=== PATIENT | male | born 1985 | race Caucasian/White ===

== ENCOUNTER 2020-02-20 11:40 | Inpatient (IN) ==
[2020-02-20] MEDS ORDERED: PHARMACY CONSULT - VANCOMYCIN XX SCH (13:00)
--- NOTE | 2020-02-20 13:16 | RAD ---
HISTORYBIL LOWER EXT CELLULITIS, HX OF CHF (PT 500+ #)STUDYPortable AP chestCOMPARISONNoneFINDINGSThere is moderately severe cardiomegaly. The lungs are grossly clear. There is minimal vascular congestion. There is no obvious bony abnormality. There is no obvious effusion.IMPRESSIONModerately severe cardiomegaly and mild vascular congestionElectronically signed by: LISA FLOWERS (February 20, 2020 13:14:55)
[2020-02-20 13:47] LABS: BASOPHILS % (AUTO) 0.6 % (0.2-1.0); EOSINOPHILS # (AUTO) 0.1 x10^3/uL (0.0-0.2); EOSINOPHILS % (AUTO) 1.9 % (0.9-2.9); HEMATOCRIT 42.5 % (42.0-54.0); HEMOGLOBIN 13.8 g/dL (13.5-18.0); LYMPHOCYTES # (AUTO) 0.8 X10^3/uL (1.3-2.9); LYMPHOCYTES % (AUTO) 11.5 % (21.0-51.0); MEAN CORPUSCULAR HEMOGLOBIN 29.5 pg (27.0-34.0); MEAN CORPUSCULAR HGB CONC 32.6 g/dL (33.0-35.0); MEAN CORPUSCULAR VOLUME 90.6 fL (80.0-100.0); MEAN PLATELET VOLUME 8.7 fL (7.4-11.0); MONOCYTES # (AUTO) 0.4 x10^3/uL (0.3-0.8); MONOCYTES % (AUTO) 6.5 % (0.0-13.0); NEUTROPHILS # (AUTO) 5.5 x10^3/uL (2.2-4.8); NEUTROPHILS % (AUTO) 79.5 % (42.0-75.0); PLATELET COUNT 179 X10^3/uL (150.0-450.0); RED BLOOD COUNT 4.69 X10^6/uL (4.7-6.0); RED CELL DISTRIBUTION WIDTH 17.6 % (11.6-16.5); WHITE BLOOD COUNT 6.9 X10^3/uL (3.6-10.0)
[2020-02-20 14:05] LABS: ALANINE AMINOTRANSFERASE 34 Units/L (12-78); ALBUMIN 3.8 g/dL (3.4-5.0); ALKALINE PHOSPHATASE 80 Units/L (46-116); ASPARTATE AMINO TRANSFERASE 18 Units/L (15-37); BLOOD UREA NITROGEN 20 mg/dL (7-18); CALCIUM 8.6 mg/dL (8.5-10.1); CARBON DIOXIDE 39.5 mmol/L (21-32); CHLORIDE 96 mmol/L (98-107); COR NA(FOR HYPERGLY) 141 mmol/L (136-145); CREATININE 1.56 mg/dL (0.70-1.30); SODIUM 139 mmol/L (136-145); TOTAL PROTEIN 7.5 g/dL (6.4-8.2); eGFR NON BLACK RACES 55 (>60)
[2020-02-20 14:36] VITALS: BMI 81.5
[2020-02-20] MEDS: VANCOMYCIN HCL 1 G in NS 250 ML IV 250 ML IV SCH ×2 (16:01→21:31)
[2020-02-20] MEDS: ZOSYN VIAL 3.375 GRAMS 3.375 G in NS 100 ML IV 100 ML IV SCH ×2 (16:02→21:31)
[2020-02-20] MEDS: LASIX IVP SCH (17:47)
[2020-02-21 05:42] LABS: BASOPHILS # (AUTO) 0.1 X10^3/uL (0.0-0.1); BASOPHILS % (AUTO) 0.9 % (0.2-1.0); EOSINOPHILS # (AUTO) 0.2 x10^3/uL (0.0-0.2); EOSINOPHILS % (AUTO) 2.8 % (0.9-2.9); HEMATOCRIT 43.4 % (42.0-54.0); HEMOGLOBIN 14.1 g/dL (13.5-18.0); LYMPHOCYTES # (AUTO) 0.8 X10^3/uL (1.3-2.9); LYMPHOCYTES % (AUTO) 12.6 % (21.0-51.0); MEAN CORPUSCULAR HEMOGLOBIN 29.8 pg (27.0-34.0); MEAN CORPUSCULAR HGB CONC 32.5 g/dL (33.0-35.0); MEAN CORPUSCULAR VOLUME 91.5 fL (80.0-100.0); MEAN PLATELET VOLUME 9.2 fL (7.4-11.0); MONOCYTES # (AUTO) 0.5 x10^3/uL (0.3-0.8); MONOCYTES % (AUTO) 8.1 % (0.0-13.0); NEUTROPHILS # (AUTO) 4.7 x10^3/uL (2.2-4.8); NEUTROPHILS % (AUTO) 75.6 % (42.0-75.0); PLATELET COUNT 169 X10^3/uL (150.0-450.0); RED BLOOD COUNT 4.75 X10^6/uL (4.7-6.0); WHITE BLOOD COUNT 6.2 X10^3/uL (3.6-10.0)
[2020-02-21 05:57] LABS: ALANINE AMINOTRANSFERASE 33 Units/L (12-78); ALBUMIN 3.8 g/dL (3.4-5.0); ALKALINE PHOSPHATASE 82 Units/L (46-116); ASPARTATE AMINO TRANSFERASE 23 Units/L (15-37); BLOOD UREA NITROGEN 18 mg/dL (7-18); CALCIUM 8.5 mg/dL (8.5-10.1); CHLORIDE 97 mmol/L (98-107); COR NA(FOR HYPERGLY) 142 mmol/L (136-145); CREATININE 1.33 mg/dL (0.70-1.30); SODIUM 141 mmol/L (136-145); TOTAL PROTEIN 7.9 g/dL (6.4-8.2); eGFR NON BLACK RACES > 60 (>60)
[2020-02-21 06:04] LABS: CARBON DIOXIDE 44.3 mmol/L (21-32)
[2020-02-21] MEDS: ZOSYN VIAL 3.375 GRAMS 3.375 G in NS 100 ML IV 100 ML IV SCH ×3 (06:18→21:30)
[2020-02-21] MEDS: VANCOMYCIN HCL 1 G in NS 250 ML IV 250 ML IV SCH (06:18)
[2020-02-21] MEDS: LASIX IVP SCH ×2 (09:50→17:29)
[2020-02-21] MEDS: COREG TAB 25 MG PO SCH ×2 (11:59→21:29)
[2020-02-21] MEDS ORDERED: PHARMACY COMMENT IV NR (13:30)
[2020-02-21 13:59] LABS: CREATININE 1.28 mg/dL (0.70-1.30); VANCOMYCIN,TROUGH 8.9 ug/mL (15-20)
[2020-02-21] MEDS ORDERED: D5W 250 ML IV 250 ML IV ONE (14:44)
[2020-02-21] MEDS ORDERED: VANCOMYCIN HCL ONE ×6 (14:44→20:13)
[2020-02-21] MEDS: VANCOMYCIN HCL VIAL 1.25 G 1.25 G in NS 250 ML IV 250 ML IV SCH ×2 (14:50→21:30)
[2020-02-21] MEDS ORDERED: NS 250 ML IV 250 ML IV ONE ×2 (20:11→20:12)
[2020-02-22] MEDS ORDERED: NS 250 ML IV 250 ML IV ONE (04:57)
[2020-02-22] MEDS ORDERED: VANCOMYCIN HCL ONE ×2 (04:57)
[2020-02-22] MEDS: VANCOMYCIN HCL VIAL 1.25 G 1.25 G in NS 250 ML IV 250 ML IV SCH ×3 (05:00→21:18)
[2020-02-22] MEDS ORDERED: NS 100 ML IV + SPIKE MINIBAG* 100 ML IV ONE ×2 (05:01→13:53)
[2020-02-22] MEDS: ZOSYN VIAL 3.375 GRAMS 3.375 G in NS 100 ML IV 100 ML IV SCH ×3 (05:05→21:18)
[2020-02-22] MEDS: VANCOMYCIN HCL 1 G in NS 250 ML IV 250 ML IV SCH (05:27)
[2020-02-22 06:00] LABS: BASOPHILS # (AUTO) 0.1 X10^3/uL (0.0-0.1); EOSINOPHILS # (AUTO) 0.2 x10^3/uL (0.0-0.2); EOSINOPHILS % (AUTO) 2.4 % (0.9-2.9); HEMATOCRIT 40.8 % (42.0-54.0); HEMOGLOBIN 13.4 g/dL (13.5-18.0); LYMPHOCYTES % (AUTO) 11.9 % (21.0-51.0); MEAN CORPUSCULAR HEMOGLOBIN 29.8 pg (27.0-34.0); MEAN CORPUSCULAR HGB CONC 32.8 g/dL (33.0-35.0); MONOCYTES # (AUTO) 0.8 x10^3/uL (0.3-0.8); MONOCYTES % (AUTO) 9.8 % (0.0-13.0); NEUTROPHILS % (AUTO) 74.9 % (42.0-75.0); PLATELET COUNT 190 X10^3/uL (150.0-450.0); RED BLOOD COUNT 4.48 X10^6/uL (4.7-6.0); RED CELL DISTRIBUTION WIDTH 17.4 % (11.6-16.5)
[2020-02-22] MEDS: TYLENOL 325 MG TAB PO PRN (06:09)
[2020-02-22 06:20] LABS: ALANINE AMINOTRANSFERASE 28 Units/L (12-78); ALBUMIN 3.5 g/dL (3.4-5.0); ALKALINE PHOSPHATASE 71 Units/L (46-116); ASPARTATE AMINO TRANSFERASE 19 Units/L (15-37); CALCIUM 8.4 mg/dL (8.5-10.1); CHLORIDE 96 mmol/L (98-107); COR NA(FOR HYPERGLY) 139 mmol/L (136-145); CREATININE 1.13 mg/dL (0.70-1.30); SODIUM 138 mmol/L (136-145); TOTAL PROTEIN 7.1 g/dL (6.4-8.2); eGFR NON BLACK RACES > 60 (>60)
[2020-02-22 06:50] LABS: BLOOD UREA NITROGEN 15 mg/dL (7-18); CARBON DIOXIDE 42.2 mmol/L (21-32)
[2020-02-22] MEDS: COREG TAB 25 MG PO SCH ×2 (09:39→21:14)
[2020-02-22] MEDS: LASIX IVP SCH ×2 (09:39→17:22)
[2020-02-22] MEDS ORDERED: PHARMACY COMMENT IV NR (13:30)
[2020-02-22 13:57] LABS: CREATININE 1.28 mg/dL (0.70-1.30); VANCOMYCIN,TROUGH 17.2 ug/mL (15-20)
--- NOTE | 2020-02-22 15:46 | RAD ---
HISTORYSOB, BEST IMAGES POSSIBLESTUDJAIR STEVENS/LAT ADULTCOMPARISONMay 2019FINDINGSThe trachea is midline. The cardiac silhouette is enlarged with pulmonary vascular congestion interstitial prominence. Correlate clinically.IMPRESSIONCardiomegaly with pulmonary vascular congestion and interstitial prominence.Electronically signed by: CHRISTOPHE GIL (February 22, 2020 15:45:19)
[2020-02-22 15:56] LABS: ABG BASE EXCESS 13.1 mmol/L (-2.0-2.0)
[2020-02-22 15:57] LABS: ABG HCO3 39.1 mmol/L (22-26)
[2020-02-22 15:58] LABS: ABG ALLEN TEST POS
[2020-02-22 17:33] LABS: ABG BASE EXCESS 15.4 mmol/L (-2.0-2.0)
[2020-02-22 17:34] LABS: ABG ALLEN TEST POS; ABG HCO3 43.4 mmol/L (22-26)
[2020-02-23 06:09] LABS: BASOPHILS % (AUTO) 0.4 % (0.2-1.0); EOSINOPHILS # (AUTO) 0.2 x10^3/uL (0.0-0.2); EOSINOPHILS % (AUTO) 2.5 % (0.9-2.9); HEMATOCRIT 40.8 % (42.0-54.0); HEMOGLOBIN 13.3 g/dL (13.5-18.0); LYMPHOCYTES # (AUTO) 0.9 X10^3/uL (1.3-2.9); LYMPHOCYTES % (AUTO) 11.5 % (21.0-51.0); MEAN CORPUSCULAR HEMOGLOBIN 29.6 pg (27.0-34.0); MEAN CORPUSCULAR HGB CONC 32.5 g/dL (33.0-35.0); MEAN CORPUSCULAR VOLUME 90.9 fL (80.0-100.0); MEAN PLATELET VOLUME 8.7 fL (7.4-11.0); MONOCYTES # (AUTO) 0.7 x10^3/uL (0.3-0.8); MONOCYTES % (AUTO) 9.3 % (0.0-13.0); NEUTROPHILS # (AUTO) 5.7 x10^3/uL (2.2-4.8); NEUTROPHILS % (AUTO) 76.3 % (42.0-75.0); PLATELET COUNT 179 X10^3/uL (150.0-450.0); RED BLOOD COUNT 4.49 X10^6/uL (4.7-6.0); RED CELL DISTRIBUTION WIDTH 17.8 % (11.6-16.5); WHITE BLOOD COUNT 7.5 X10^3/uL (3.6-10.0)
[2020-02-23] MEDS: VANCOMYCIN HCL VIAL 1.25 G 1.25 G in NS 250 ML IV 250 ML IV SCH ×3 (06:13→22:33)
[2020-02-23 06:25] LABS: ALANINE AMINOTRANSFERASE 24 Units/L (12-78); ALBUMIN 3.3 g/dL (3.4-5.0); ALKALINE PHOSPHATASE 64 Units/L (46-116); ASPARTATE AMINO TRANSFERASE 20 Units/L (15-37); BLOOD UREA NITROGEN 12 mg/dL (7-18); CALCIUM 8.5 mg/dL (8.5-10.1); CHLORIDE 97 mmol/L (98-107); COR CA(FOR HYPOALB) 9.1 mg/dL (8.5-10.1); COR NA(FOR HYPERGLY) 140 mmol/L (136-145); CREATININE 1.11 mg/dL (0.70-1.30); SODIUM 139 mmol/L (136-145); TOTAL PROTEIN 6.9 g/dL (6.4-8.2); eGFR NON BLACK RACES > 60 (>60)
[2020-02-23 06:27] LABS: CARBON DIOXIDE 42.3 mmol/L (21-32)
[2020-02-23] MEDS: LASIX IVP SCH ×2 (08:35→17:30)
[2020-02-23] MEDS: COREG TAB 25 MG PO SCH ×2 (08:35→21:30)
[2020-02-23] MEDS: ZOSYN VIAL 3.375 GRAMS 3.375 G in NS 100 ML IV 100 ML IV SCH ×4 (08:35→21:40)
[2020-02-23] MEDS: DUONEB 0.5 MG/3 MG (3 mL) NEB SCH ×4 (10:00→20:34)
--- NOTE | 2020-02-23 10:03 | DR.UPDATE ---
H&P Update History and Physical Update: History and Physical reviewed and patient examined. Changes noted: Yes with the following: WAS SEEN IN THE OFFICE DUE TO COMPLAINTS OF BILATERAL LOWER EXTREMITY SWELLING AND REDNESS. A VENOUS DOPPLER WAS OBTAINED AND HE WAS STARTED ON BACTRIM DS 1 TABLET PO BID THREE DAYS PRIOR TO TODAYS VISIT. HIS LASIX WAS ALSO INCREASED TO 80MG PO BID THREE DAYS PRIOR. SYMPTOMS CONTINUE TO WORSEN. HE CONTINUES WITH 3+ PITTING EDEMA AND LOWER EXTREMITY ERYTHEMA AND EDEMA. HE WAS ADMITTED TO THE HOSPITAL FOR FURTHER EVALUATION AND TREATMENT OF LOWER EXTREMITY CELLULITIS. ON ADMISSION, VITALS WERE 98.9-64-20-94%-125/59. LABS WERE OBTAINED. ABNORMAL LAB VALUES INCLUDE THE FOLLOWING: RBC 4.69, CHLORIDE 96, CARBON DIOXIDE 39.5, BUN 20, CREATININE 1.56, GLUCOSE 193, BNP 246. BLOOD CULTURES WERE SET UP. HE WAS STARTED ON VANCOMYCIN 1.25G IV TID, ZOSYN 3.375G IV TID, AND LASIX 40MG IV BID. OTHERWISE, WE WILL FOLLOW UP WITH AM LABS AND CONTINUE TO MONITOR. Prescription drug monitoring program results: PDMP reviewed and no concerns identified H&P Reviewed: Yes Patient was examined?: Yes
[2020-02-23 10:45] LABS: ABG BASE EXCESS 17.1 mmol/L (-2.0-2.0)
[2020-02-23 10:46] LABS: ABG HCO3 46.2 mmol/L (22-26)
[2020-02-23 10:47] LABS: ABG ALLEN TEST POS
--- NOTE | 2020-02-23 11:51 | RAD ---
HISTORYSOBSTUDYUpright portable AP chestCOMPARISONMay 2019FINDINGSThere is unchanged moderate cardiomegaly. There is moderate vascular congestion. There is no obvious pleural effusion. There is no focal lung consolidation.IMPRESSIONUnchanged cardiomegaly and vascular congestionElectronically signed by: LISA FLOWERS (Feb 23, 2020 11:50:04)
--- NOTE | 2020-02-23 21:07 | PCM.PROG ---
Progress Note - Progress Note for Day of Date of Exam: 02/23/20 - Subjective Subjective: IS BEING TREATED FOR BILATERAL LOWER EXTREMITY CELLULITIS AND CONGESTIVE HEART FAILURE. TODAY, HE IS LYING IN BED WITH EYES CLOSED ON MORNING ROUNDS. HE AWAKENS EASILY TO VERBAL STIMULI. HE REPORTS SHORTNESS OF BREATH THIS MORNING. HE CONTINUES WITH LOWER EXTREMITY ERYTHEM AND 2+ PITTING EDEMA. HIS VITALS THIS MORNING ARE: 97.9-70-22-91%NC-101/47. LABS WERE OBTAINED. ABNORMAL LAB VALUES INCLUDE THE FOLLOWING: RBC 4.49, HGB 13.3, HCT 40.8, CHLORIDE 97, CARBON DIOXIDE 42.3, GLUCOSE 131, ALBUMIN 3.3. AN ABG WAS REPEATED THIS MORNING AND REVEALED: PH 7.370, PC02 80.0, P02 40.0, HC03 46.2, 02 SATURATION 73.0, BASE EXCESS 17.1. BLOOD CULTURES ARE PENDING. A CHEST XRAY WAS OBTAINED AND REVEALED: no changed cardiomegaly and vascular congestion. HE IS CURRENTLY RECEIVING VANCOMYCIN 1.25G IV TID, ZOSYN 3.375G IV Q6H, COREG 25MG PO BID, AND LASIX 40MG IV BID. TODAY, WE WILL INCREASE LASIX TO 80MG IV BID AND START DUONEBS QID. OTHERWISE, WE PLAN TO FOLLOW UP WITH AM LABS AND CONTINUE TO MONITOR. - Past Medical Family Social History Past Med/Fam/Surg Hx: No changes since H&P Allergies: Allergies No Known Drug Allergies Allergy (Verified 02/20/20 14:34) - Review of Systems ROS: No change since H&P - Vital Signs and I&O's Vital Signs: Temperature 98.3 F Pulse Rate [Left Brachial] 80 Pulse Rate 68 Respiratory Rate 20 Blood Pressure [Left Arm] 132/81 O2 Sat by Pulse Oximetry 99 Intake and Output: Intake & Output 02/21/20 02/22/20 02/23/20 02/24/20 11:59 11:59 11:59 11:59 Intake Total 1991 363 / 0 4651 / 4651 720 / 720 Balance 1991 4651 / 4651 720 / 720 - Physical Exam Oriented: Normal Eyes: Normal Ear: Normal Nose: Normal Throat: Normal Respiratory: Generalized, Diminished, Wheezes Cardiovascular: Edema (BLE 2+ PITTING EDEMA ) : Normal Auscultation: Bowel Sounds: Normal Palpation: Normal Tenderness: Normal Skin: Red (BILATERAL LOWER EXTREMITIES ), Tender, Hot Musculoskeletal: Normal Psychiatric: Normal Mood Description: Calm Affect: Normal Speech Pattern: Clear, Appropriate - Laboratory and Diagnostics Result Diagrams: 02/23/20 04:37 02/23/20 04:37 Labs: 02/20/20 13:32 Blood Blood Culture - Preliminary 02/20/20 13:24 Blood Blood Culture - Preliminary Laboratory WBC 7.5 X10^3/uL (3.6-10.0) 02/23/20 04:37 RBC 4.49 X10^6/uL (4.7-6.0) L 02/23/20 04:37 Hgb 13.3 g/dL (13.5-18.0) L 02/23/20 04:37 Hct 40.8 % (42.0-54.0) L 02/23/20 04:37 MCV 90.9 fL (80.0-100.0) 02/23/20 04:37 MCH 29.6 pg (27.0-34.0) 02/23/20 04:37 MCHC 32.5 g/dL (33.0-35.0) L 02/23/20 04:37 RDW 17.8 % (11.6-16.5) H 02/23/20 04:37 Plt Count 179 X10^3/uL (150.0-450.0) 02/23/20 04:37 MPV 8.7 fL (7.4-11.0) 02/23/20 04:37 Neut % (Auto) 76.3 % (42.0-75.0) H 02/23/20 04:37 Lymph % (Auto) 11.5 % (21.0-51.0) L 02/23/20 04:37 [place] % (Auto) 9.3 % (0.0-13.0) 02/23/20 04:37 Eos % (Auto) 2.5 % (0.9-2.9) 02/23/20 04:37 Baso % (Auto) 0.4 % (0.2-1.0) 02/23/20 04:37 Neut # (Auto) 5.7 x10^3/uL (2.2-4.8) H 02/23/20 04:37 Lymph # (Auto) 0.9 X10^3/uL (1.3-2.9) L 02/23/20 04:37 [place] # (Auto) 0.7 x10^3/uL (0.3-0.8) 02/23/20 04:37 Eos # (Auto) 0.2 x10^3/uL (0.0-0.2) 02/23/20 04:37 Baso # (Auto) 0.0 X10^3/uL (0.0-0.1) 02/23/20 04:37 Absolute Nucleated RBC 0.2 /100WBC 02/23/20 04:37 Sample Site Lr 02/23/20 10:39 ABG pH 7.370 (7.35-7.45) 02/23/20 10:39 ABG pCO2 80.0 mmHg (35.0-45.0) H* 02/23/20 10:39 ABG pO2 40.0 mmHg (80.0-100.0) L* 02/23/20 10:39 ABG HCO3 46.2 mmol/L (22-26) H* 02/23/20 10:39 ABG O2 Saturation 73.0 % (90-100) L* 02/23/20 10:39 ABG Base Excess 17.1 mmol/L (-2.0-2.0) H 02/23/20 10:39 Sergo Test Pos 02/23/20 10:39 A-a Gradient 10.0 mmHg 02/23/20 10:39 FiO2 21.0 02/23/20 10:39 Blood Gas Comments Avis well cb 02/23/20 10:39 Sodium 139 mmol/L (136-145) 02/23/20 04:37 Corrected Sodium 140 mmol/L (136-145) 02/23/20 04:37 Potassium 3.7 mmol/L (3.5-5.1) 02/23/20 04:37 Chloride 97 mmol/L (98-107) L 02/23/20 04:37 Carbon Dioxide 42.3 mmol/L (21-32) H* 02/23/20 04:37 BUN 12 mg/dL (7-18) 02/23/20 04:37 Creatinine 1.11 mg/dL (0.70-1.30) 02/23/20 04:37 Est GFR (MDRD) Af Amer > 60 (>60) 02/23/20 04:37 Est GFR (MDRD) Non-Af > 60 (>60) 02/23/20 04:37 Glucose 131 mg/dL (65-99) H 02/23/20 04:37 Hemoglobin A1c 6.3 % 02/20/20 13:24 Calcium 8.5 mg/dL (8.5-10.1) 02/23/20 04:37 Corrected Calcium 9.1 mg/dL (8.5-10.1) 02/23/20 04:37 Total Bilirubin 0.60 mg/dL (0.2-1.0) 02/23/20 04:37 AST 20 Units/L (15-37) 02/23/20 04:37 ALT 24 Units/L (12-78) 02/23/20 04:37 Alkaline Phosphatase 64 Units/L (46-116) 02/23/20 04:37 B-Natriuretic Peptide 246 pg/mL (0-79) H 02/20/20 13:24 Total Protein 6.9 g/dL (6.4-8.2) 02/23/20 04:37 Albumin 3.3 g/dL (3.4-5.0) L 02/23/20 04:37 Globulin 3.6 g/dL (2.5-4.5) 02/23/20 04:37 Albumin/Globulin Ratio 0.9 Ratio (1.1-2.1) L 02/23/20 04:37 Vancomycin Trough 17.2 ug/mL (15-20) 02/22/20 13:35 - Plan (1) Bilateral lower leg cellulitis Status: Acute Plan: VANCOMYCIN 1.25G IV TID, ZOSYN 3.375G IV Q6H, COREG 25MG PO BID, AND LASIX 80MG IV BID (2) Congestive heart failure Status: Acute Qualifiers: Heart failure type: unspecified Heart failure chronicity: acute on chronic Qualified Code(s): I50.9 - Heart failure, unspecified Plan: COREG 25MG PO BID, LASIX 80MG IV BID, CONTINUE TO MONITOR
[2020-02-23 21:27] LABS: CREATININE 1.28 mg/dL (0.70-1.30); VANCOMYCIN,TROUGH 18.2 ug/mL (15-20)
[2020-02-24] MEDS: ZOSYN VIAL 3.375 GRAMS 3.375 G in NS 100 ML IV 100 ML IV SCH ×4 (03:40→21:04)
[2020-02-24] MEDS: VANCOMYCIN HCL VIAL 1.25 G 1.25 G in NS 250 ML IV 250 ML IV SCH ×3 (06:14→21:59)
[2020-02-24 06:21] LABS: BASOPHILS # (AUTO) 0.1 X10^3/uL (0.0-0.1); BASOPHILS % (AUTO) 0.8 % (0.2-1.0); EOSINOPHILS # (AUTO) 0.2 x10^3/uL (0.0-0.2); EOSINOPHILS % (AUTO) 3.7 % (0.9-2.9); HEMATOCRIT 39.6 % (42.0-54.0); HEMOGLOBIN 13.1 g/dL (13.5-18.0); LYMPHOCYTES # (AUTO) 0.7 X10^3/uL (1.3-2.9); LYMPHOCYTES % (AUTO) 10.6 % (21.0-51.0); MEAN CORPUSCULAR HEMOGLOBIN 29.8 pg (27.0-34.0); MEAN CORPUSCULAR VOLUME 90.3 fL (80.0-100.0); MEAN PLATELET VOLUME 8.4 fL (7.4-11.0); MONOCYTES # (AUTO) 0.6 x10^3/uL (0.3-0.8); MONOCYTES % (AUTO) 9.1 % (0.0-13.0); NEUTROPHILS # (AUTO) 5.1 x10^3/uL (2.2-4.8); NEUTROPHILS % (AUTO) 75.8 % (42.0-75.0); PLATELET COUNT 149 X10^3/uL (150.0-450.0); RED BLOOD COUNT 4.39 X10^6/uL (4.7-6.0); RED CELL DISTRIBUTION WIDTH 17.5 % (11.6-16.5); WHITE BLOOD COUNT 6.8 X10^3/uL (3.6-10.0)
[2020-02-24 06:27] LABS: ABG BASE EXCESS 20.5 mmol/L (-2.0-2.0)
[2020-02-24 06:28] LABS: ABG ALLEN TEST POS; ABG HCO3 51.9 mmol/L (22-26)
[2020-02-24 06:29] LABS: ALANINE AMINOTRANSFERASE 22 Units/L (12-78); ALBUMIN 3.3 g/dL (3.4-5.0); ALKALINE PHOSPHATASE 67 Units/L (46-116); ASPARTATE AMINO TRANSFERASE 18 Units/L (15-37); BLOOD UREA NITROGEN 11 mg/dL (7-18); CALCIUM 8.5 mg/dL (8.5-10.1); CHLORIDE 97 mmol/L (98-107); COR CA(FOR HYPOALB) 9.1 mg/dL (8.5-10.1); COR NA(FOR HYPERGLY) 140 mmol/L (136-145); CREATININE 1.19 mg/dL (0.70-1.30); SODIUM 139 mmol/L (136-145); TOTAL PROTEIN 6.8 g/dL (6.4-8.2); eGFR NON BLACK RACES > 60 (>60)
[2020-02-24 06:49] LABS: CARBON DIOXIDE 41.9 mmol/L (21-32)
[2020-02-24] MEDS: LASIX IVP SCH ×2 (09:02→17:33)
[2020-02-24] MEDS: COREG TAB 25 MG PO SCH ×2 (09:08→21:09)
[2020-02-24] MEDS: DUONEB 0.5 MG/3 MG (3 mL) NEB SCH ×4 (09:12→20:25)
[2020-02-24] MEDS ORDERED: KLONOPIN TAB 0.5 MG PO PRN (09:49)
[2020-02-24 10:25] LABS: ABG ALLEN TEST POS; ABG BASE EXCESS 21.6 mmol/L (-2.0-2.0); ABG HCO3 50.7 mmol/L (22-26)
--- NOTE | 2020-02-24 10:38 | PCM.PROG ---
Progress Note - Progress Note for Day of Date of Exam: 02/24/20 - Subjective Subjective: IS BEING TREATED FOR BILATERAL LOWER EXTREMITY CELLULITIS AND CONGESTIVE HEART FAILURE. IS SEVERELY OBESE. TODAY, HE IS ALERT AND ORIENTED, SITTING IN BED ON MORNING ROUNDS. HE CONTINUES TO REPORT SHORTNESS OF BREATH AND WEAKNESS THIS MORNING. HE CONTINUES WITH LOWER EXTREMITY ERYTHEM AND 2+ PITTING EDEMA. HIS VITALS THIS MORNING ARE: 98.7-71-18-84%NC-125/58. LABS WERE OBTAINED. ABNORMAL LAB VALUES INCLUDE THE FOLLOWING: RBC 4.39, HGB 13.1, HCT 39.6, PLT COUNT 149, POTASSIUM 3.4, CHLORIDE 97. CARBON DIOXIDE 41.9, GLUCOSE 142, ALBUMIN 3.3. AN ABG WAS REPEATED THIS MO RNING AND REVEALED: PH 7.410, PC02 80.0, P02 91.0, HC03 50.7, 02 SATURATION 97.0, BASE EXCESS 21.6. BLOOD CULTURES ARE PENDING. HE IS CURRENTLY RECEIVING VANCOMYCIN 1.25G IV TID, ZOSYN 3.375G IV Q6H, COREG 25MG PO BID, AND LASIX 80MG IV BID. TODAY, WE WILL ADD SOLU-MEDROL 80MG IV TID AND SLIDING SCALE INSULIN. WE HAVE ENCOURAGED PATIENT TO WEAR THE BIPAP, BUT HE CONTINUES TO REFUSE. WE WILL CONTINUE TO EDUCATE ON THE IMPORTANCE OF WEARING THE BIPAP. OTHERWISE, WE WILL FOLLOW UP WITH AM LABS AND CONTINUE TO MONITOR. - Past Medical Family Social History Past Med/Fam/Surg Hx: No changes since H&P Allergies: Allergies No Known Drug Allergies Allergy (Verified 02/20/20 14:34) - Review of Systems ROS: No change since H&P - Vital Signs and I&O's Vital Signs: Temperature 98.7 F Pulse Rate [Left Brachial] 71 Pulse Rate 63 Respiratory Rate 24 Blood Pressure [Left Arm] 125/58 O2 Sat by Pulse Oximetry 96 Intake and Output: Intake & Output 02/21/20 02/22/20 02/23/20 02/24/20 11:59 11:59 11:59 11:59 Intake Total 1991 3630 / 3630 4651 / 4651 1400 / 1400 Balance 1991 3630 / 3630 4651 / 4651 1400 / 1400 - Physical Exam Oriented: Normal Eyes: Normal Ear: Normal Nose: Normal Throat: Normal Respiratory: Generalized, Diminished, Wheezes Cardiovascular: Edema (BLE 2+ PITTING EDEMA ) : Normal Auscultation: Bowel Sounds: Normal Palpation: Normal Tenderness: Normal Skin: Red (BILATERAL LOWER EXTREMITIES ), Tender, Hot Musculoskeletal: Normal Psychiatric: Normal Mood Description: Calm Affect: Normal Speech Pattern: Clear, Appropriate - Laboratory and Diagnostics Result Diagrams: 02/24/20 05:55 02/24/20 05:55 Labs: 02/20/20 13:32 Blood Blood Culture - Preliminary 02/20/20 13:24 Blood Blood Culture - Preliminary Laboratory WBC 6.8 X10^3/uL (3.6-10.0) 02/24/20 05:55 RBC 4.39 X10^6/uL (4.7-6.0) L 02/24/20 05:55 Hgb 13.1 g/dL (13.5-18.0) L 02/24/20 05:55 Hct 39.6 % (42.0-54.0) L 02/24/20 05:55 MCV 90.3 fL (80.0-100.0) 02/24/20 05:55 MCH 29.8 pg (27.0-34.0) 02/24/20 05:55 MCHC 33.0 g/dL (33.0-35.0) 02/24/20 05:55 RDW 17.5 % (11.6-16.5) H 02/24/20 05:55 Plt Count 149 X10^3/uL (150.0-450.0) L 02/24/20 05:55 MPV 8.4 fL (7.4-11.0) 02/24/20 05:55 Neut % (Auto) 75.8 % (42.0-75.0) H 02/24/20 05:55 Lymph % (Auto) 10.6 % (21.0-51.0) L 02/24/20 05:55 [place] % (Auto) 9.1 % (0.0-13.0) 02/24/20 05:55 Eos % (Auto) 3.7 % (0.9-2.9) H 02/24/20 05:55 Baso % (Auto) 0.8 % (0.2-1.0) 02/24/20 05:55 Neut # (Auto) 5.1 x10^3/uL (2.2-4.8) H 02/24/20 05:55 Lymph # (Auto) 0.7 X10^3/uL (1.3-2.9) L 02/24/20 05:55 [place] # (Auto) 0.6 x10^3/uL (0.3-0.8) 02/24/20 05:55 Eos # (Auto) 0.2 x10^3/uL (0.0-0.2) 02/24/20 05:55 Baso # (Auto) 0.1 X10^3/uL (0.0-0.1) 02/24/20 05:55 Absolute Nucleated RBC 0.0 /100WBC 02/24/20 05:55 Sample Site Rrad 02/24/20 10:15 ABG pH 7.410 (7.35-7.45) 02/24/20 10:15 ABG pCO2 80.0 mmHg (35.0-45.0) H* 02/24/20 10:15 ABG pO2 91.0 mmHg (80.0-100.0) 02/24/20 10:15 ABG HCO3 50.7 mmol/L (22-26) H* 02/24/20 10:15 ABG O2 Saturation 97.0 % (90-100) 02/24/20 10:15 ABG Base Excess 21.6 mmol/L (-2.0-2.0) H 02/24/20 10:15 Sergo Test Pos 02/24/20 10:15 A-a Gradient 23.0 mmHg 02/24/20 10:15 FiO2 30.0 02/24/20 10:15 Blood Gas Comments Pt daria well elj 02/24/20 10:15 Sodium 139 mmol/L (136-145) 02/24/20 05:55 Corrected Sodium 140 mmol/L (136-145) 02/24/20 05:55 Potassium 3.4 mmol/L (3.5-5.1) L 02/24/20 05:55 Chloride 97 mmol/L (98-107) L 02/24/20 05:55 Carbon Dioxide 41.9 mmol/L (21-32) H* 02/24/20 05:55 BUN 11 mg/dL (7-18) 02/24/20 05:55 Creatinine 1.19 mg/dL (0.70-1.30) 02/24/20 05:55 Est GFR (MDRD) Af Amer > 60 (>60) 02/24/20 05:55 Est GFR (MDRD) Non-Af > 60 (>60) 02/24/20 05:55 Glucose 142 mg/dL (65-99) H 02/24/20 05:55 Hemoglobin A1c 6.3 % 02/20/20 13:24 Calcium 8.5 mg/dL (8.5-10.1) 02/24/20 05:55 Corrected Calcium 9.1 mg/dL (8.5-10.1) 02/24/20 05:55 Total Bilirubin 0.60 mg/dL (0.2-1.0) 02/24/20 05:55 AST 18 Units/L (15-37) 02/24/20 05:55 ALT 22 Units/L (12-78) 02/24/20 05:55 Alkaline Phosphatase 67 Units/L (46-116) 02/24/20 05:55 B-Natriuretic Peptide 246 pg/mL (0-79) H 02/20/20 13:24 Total Protein 6.8 g/dL (6.4-8.2) 02/24/20 05:55 Albumin 3.3 g/dL (3.4-5.0) L 02/24/20 05:55 Globulin 3.5 g/dL (2.5-4.5) 02/24/20 05:55 Albumin/Globulin Ratio 0.9 Ratio (1.1-2.1) L 02/24/20 05:55 Vancomycin Trough 18.2 ug/mL (15-20) 02/23/20 20:30 - Plan (1) Bilateral lower leg cellulitis Status: Acute Plan: VANCOMYCIN 1.25G IV TID, ZOSYN 3.375G IV Q6H, COREG 25MG PO BID, AND LASIX 80MG IV BID (2) Congestive heart failure Status: Acute Qualifiers: Heart failure type: unspecified Heart failure chronicity: acute on chronic Qualified Code(s): I50.9 - Heart failure, unspecified Plan: COREG 25MG PO BID, LASIX 80MG IV BID, CONTINUE TO MONITOR (3) Respiratory failure with hypoxia and hypercapnia Status: Acute Qualifiers: Chronicity: acute on chronic Qualified Code(s): J96.21 - Acute and chronic respiratory failure with hypoxia; J96.22 - Acute and chronic respiratory failure with hypercapnia Plan: ENCOURAGE USE OF BIPAP, SOLU-MEDROL 80MG IV Q8H, CONTINUE TO MONITOR
[2020-02-24] MEDS: SOLU-Medrol 40 MG VIAL IVP SCH ×3 (11:21→21:04)
[2020-02-24] MEDS: SNACK - Diabetic Appropriate PO SCH (21:59)
[2020-02-24] MEDS: HumuLIN R SUBCUT PRN (22:18)
[2020-02-25] MEDS ORDERED: NS 250 ML IV 250 ML IV ONE ×2 (03:56→23:32)
[2020-02-25] MEDS: ZOSYN VIAL 3.375 GRAMS 3.375 G in NS 100 ML IV 100 ML IV SCH ×4 (04:00→21:40)
--- NOTE | 2020-02-25 04:44 | RAD ---
HISTORYshortness of breathSTUDYCHEST, 1 [id number]/2020FINDINGSThe trachea is midline. The cardiac silhouette is enlarged. Moderate pulmonary vascular congestion. No focal consolidation or pleural effusion. The bony thorax is unremarkable.IMPRESSIONCardiomegaly with moderate pulmonary vascular congestionNo significant change from previous 02/23/2020Electronically signed by: Stephan Amezquita (Feb 25, 2020 04:42:44)
[2020-02-25 05:05] LABS: BASOPHILS % (AUTO) 0.2 % (0.2-1.0); HEMATOCRIT 41.9 % (42.0-54.0); HEMOGLOBIN 13.7 g/dL (13.5-18.0); LYMPHOCYTES # (AUTO) 0.3 X10^3/uL (1.3-2.9); LYMPHOCYTES % (AUTO) 6.1 % (21.0-51.0); MEAN CORPUSCULAR HEMOGLOBIN 29.5 pg (27.0-34.0); MEAN CORPUSCULAR HGB CONC 32.6 g/dL (33.0-35.0); MEAN CORPUSCULAR VOLUME 90.6 fL (80.0-100.0); MEAN PLATELET VOLUME 8.6 fL (7.4-11.0); MONOCYTES # (AUTO) 0.2 x10^3/uL (0.3-0.8); MONOCYTES % (AUTO) 3.3 % (0.0-13.0); NEUTROPHILS # (AUTO) 4.8 x10^3/uL (2.2-4.8); NEUTROPHILS % (AUTO) 90.4 % (42.0-75.0); PLATELET COUNT 161 X10^3/uL (150.0-450.0); RED BLOOD COUNT 4.63 X10^6/uL (4.7-6.0); WHITE BLOOD COUNT 5.4 X10^3/uL (3.6-10.0)
[2020-02-25 05:14] LABS: ALANINE AMINOTRANSFERASE 23 Units/L (12-78); ALBUMIN 3.3 g/dL (3.4-5.0); ALKALINE PHOSPHATASE 67 Units/L (46-116); ASPARTATE AMINO TRANSFERASE 17 Units/L (15-37); BLOOD UREA NITROGEN 14 mg/dL (7-18); CALCIUM 8.8 mg/dL (8.5-10.1); CHLORIDE 97 mmol/L (98-107); COR CA(FOR HYPOALB) 9.4 mg/dL (8.5-10.1); COR NA(FOR HYPERGLY) 143 mmol/L (136-145); CREATININE 1.63 mg/dL (0.70-1.30); SODIUM 139 mmol/L (136-145); TOTAL PROTEIN 7.1 g/dL (6.4-8.2); eGFR NON BLACK RACES 52 (>60)
[2020-02-25 05:23] LABS: CARBON DIOXIDE 43.8 mmol/L (21-32)
[2020-02-25 05:24] LABS: ABG BASE EXCESS 19.7 mmol/L (-2.0-2.0)
[2020-02-25 05:25] LABS: ABG ALLEN TEST POS; ABG HCO3 49.7 mmol/L (22-26)
[2020-02-25 05:36] LABS: ANISOCYTOSIS SLIGHT; CREATININE 1.62 mg/dL (0.70-1.30); PLATELET MORPHOLOGY COMMENT NORMAL (NORMAL)
[2020-02-25] MEDS: VANCOMYCIN HCL VIAL 1.25 G 1.25 G in NS 250 ML IV 250 ML IV SCH (05:43)
[2020-02-25] MEDS: SOLU-Medrol 40 MG VIAL IVP SCH ×3 (06:14→21:40)
[2020-02-25] MEDS: HumuLIN R SUBCUT PRN ×4 (06:14→21:54)
[2020-02-25] MEDS: LASIX IVP SCH ×2 (08:42→17:27)
[2020-02-25] MEDS: COREG TAB 25 MG PO SCH ×2 (08:42→21:38)
[2020-02-25] MEDS: DUONEB 0.5 MG/3 MG (3 mL) NEB SCH ×4 (09:18→21:21)
[2020-02-25] MEDS: VANCOMYCIN IV *PREMIX 1 G/200 ML BAG 1 G/200 ML PIGGYBACK IV SCH ×2 (14:23→21:41)
[2020-02-25] MEDS: SNACK - Diabetic Appropriate PO SCH (20:00)
--- NOTE | 2020-02-25 22:28 | PCM.PROG ---
Progress Note - Progress Note for Day of Date of Exam: 02/25/20 - Subjective Subjective: IS BEING TREATED FOR BILATERAL LOWER EXTREMITY CELLULITIS AND CONGESTIVE HEART FAILURE. HE HAS USED THE BIPAP INTERMITTENTLY. TODAY, HE IS ALERT AND ORIENTED, SITTING IN BED ON MORNING ROUNDS. HE CONTINUES TO REPORT SHORTNESS OF BREATH AND WEAKNESS THIS MORNING. HE CONTINUES WITH LOWER EXTREMITY ERYTHEM AND PITTING EDEMA. HIS VITALS THIS MORNING ARE: 97.7-74-20-94%-140/70. LABS WERE OBTAINED. ABNORMAL LAB VALUES INCLUDE THE FOLLOWING: RBC 4.63, HCT 41.9, CHLORIDE 97, CARBON DIOXIDE 43.8, CREATININE 1.63, GLUCOSE 255, ALBUMIN 3.3, BNP 168. AN ABG WAS REPEATED THIS MORNING AND REVEALED: PH 7.360, PC02 88.0, P02 72.0, HC03 49.7, 02 SATURATION 94.0, BASE EXCESS 19.7. BLOOD CULTURES ARE PENDING. A CHEST XRAY WAS OBTAINED AND REVEALED: Cardiomegaly with moderate pulmonary vascular congestion. No significant change from previous 02/23/2020. HE IS CURRENTLY RECEIVING VANCOMYCIN 1.25G IV TID, ZOSYN 3.375G IV Q6H, COREG 25MG PO BID, AND LASIX 80MG IV BID. TODAY, WE WILL ADD SOLU-MEDROL 80MG IV TID AND SLIDING SCALE INSULIN. WE WILL CONTINUE TO EDUCATE ON THE IMPORTANCE OF WEA RING THE BIPAP MUCH POSSIBLE. OTHERWISE, WE WILL FOLLOW UP WITH AM LABS AND CONTINUE TO MONITOR. - Past Medical Family Social History Past Med/Fam/Surg Hx: No changes since H&P Allergies: Allergies No Known Drug Allergies Allergy (Verified 02/20/20 14:34) - Review of Systems ROS: No change since H&P - Vital Signs and I&O's Vital Signs: Temperature 98.1 F Pulse Rate [Left Brachial] 61 Pulse Rate 56 Respiratory Rate 23 Blood Pressure [Left Arm] 152/68 O2 Sat by Pulse Oximetry 96 Intake and Output: Intake & Output 02/23/20 02/24/20 02/25/20 02/26/20 11:59 11:59 11:59 11:59 Intake Total 4651 / 4651 1400 / 1400 2420 / 2420 1780 / 1780 Balance 4651 / 4651 1400 / 1400 2420 / 2420 1780 / 1780 - Physical Exam Oriented: Normal Eyes: Normal Ear: Normal Nose: Normal Throat: Normal Respiratory: Generalized, Diminished, Wheezes Cardiovascular: Edema (BLE 2+ PITTING EDEMA ) : Normal Auscultation: Bowel Sounds: Normal Tenderness: Normal Skin: Red (BILATERAL LOWER EXTREMITIES ), Tender, Hot Musculoskeletal: Normal Psychiatric: Normal Mood Description: Calm Affect: Normal Speech Pattern: Clear, Appropriate - Laboratory and Diagnostics Result Diagrams: 02/25/20 04:45 02/25/20 20:25 Labs: 02/20/20 13:32 Blood Blood Culture - Final 02/20/20 13:24 Blood Blood Culture - Final Laboratory WBC 5.4 X10^3/uL (3.6-10.0) 02/25/20 04:45 RBC 4.63 X10^6/uL (4.7-6.0) L 02/25/20 04:45 Hgb 13.7 g/dL (13.5-18.0) 02/25/20 04:45 Hct 41.9 % (42.0-54.0) L 02/25/20 04:45 MCV 90.6 fL (80.0-100.0) 02/25/20 04:45 MCH 29.5 pg (27.0-34.0) 02/25/20 04:45 MCHC 32.6 g/dL (33.0-35.0) L 02/25/20 04:45 RDW 17.0 % (11.6-16.5) H 02/25/20 04:45 Plt Count 161 X10^3/uL (150.0-450.0) 02/25/20 04:45 Plt Count Comment Adequate (ADEQUATE) 02/25/20 04:45 MPV 8.6 fL (7.4-11.0) 02/25/20 04:45 Neut % (Auto) 90.4 % (42.0-75.0) H 02/25/20 04:45 Lymph % (Auto) 6.1 % (21.0-51.0) L 02/25/20 04:45 [place] % (Auto) 3.3 % (0.0-13.0) 02/25/20 04:45 Eos % (Auto) 0.0 % (0.9-2.9) L 02/25/20 04:45 Baso % (Auto) 0.2 % (0.2-1.0) 02/25/20 04:45 Neut # (Auto) 4.8 x10^3/uL (2.2-4.8) 02/25/20 04:45 Lymph # (Auto) 0.3 X10^3/uL (1.3-2.9) L 02/25/20 04:45 [place] # (Auto) 0.2 x10^3/uL (0.3-0.8) L 02/25/20 04:45 Eos # (Auto) 0.0 x10^3/uL (0.0-0.2) 02/25/20 04:45 Baso # (Auto) 0.0 X10^3/uL (0.0-0.1) 02/25/20 04:45 Absolute Nucleated RBC 0.2 /100WBC 02/25/20 04:45 Total Counted 100 02/25/20 04:45 Neutrophils % (Manual) 92 % (39-76) H 02/25/20 04:45 Lymphocytes % (Manual) 4 % (13-43) L 02/25/20 04:45 Monocytes % (Manual) 4 % (4-9) 02/25/20 04:45 Plt Morphology Comment Normal (NORMAL) 02/25/20 04:45 RBC Morphology Abnormal (NORMAL) 02/25/20 04:45 Anisocytosis Slight A 02/25/20 04:45 Sample Site Lr 02/25/20 05:13 ABG pH 7.360 (7.35-7.45) 02/25/20 05:13 ABG pCO2 88.0 mmHg (35.0-45.0) H* 02/25/20 05:13 ABG pO2 72.0 mmHg (80.0-100.0) L 02/25/20 05:13 ABG HCO3 49.7 mmol/L (22-26) H* 02/25/20 05:13 ABG O2 Saturation 94.0 % (90-100) 02/25/20 05:13 ABG Base Excess 19.7 mmol/L (-2.0-2.0) H 02/25/20 05:13 Sergo Test Pos 02/25/20 05:13 A-a Gradient 32.0 mmHg 02/25/20 05:13 FiO2 30.0 02/25/20 05:13 Blood Gas Comments Avis well ae 02/25/20 05:13 Sodium 139 mmol/L (136-145) 02/25/20 04:45 Corrected Sodium 143 mmol/L (136-145) 02/25/20 04:45 Potassium 3.7 mmol/L (3.5-5.1) 02/25/20 04:45 Chloride 97 mmol/L (98-107) L 02/25/20 04:45 Carbon Dioxide 43.8 mmol/L (21-32) H* 02/25/20 04:45 BUN 14 mg/dL (7-18) 02/25/20 04:45 Creatinine 1.62 mg/dL (0.70-1.30) H 02/25/20 04:45 Creatinine 1.63 mg/dL (0.70-1.30) H 02/25/20 04:45 Est GFR (MDRD) Af Amer > 60 (>60) 02/25/20 04:45 Est GFR (MDRD) Non-Af 52 (>60) L 02/25/20 04:45 Glucose 426 mg/dL (65-99) H 02/25/20 20:25 POC Glucose (mg/dL) 439 mg/dL (65-99) H 02/25/20 20:07 Hemoglobin A1c 6.3 % 02/20/20 13:24 Calcium 8.8 mg/dL (8.5-10.1) 02/25/20 04:45 Corrected Calcium 9.4 mg/dL (8.5-10.1) 02/25/20 04:45 Total Bilirubin 0.50 mg/dL (0.2-1.0) 02/25/20 04:45 AST 17 Units/L (15-37) 02/25/20 04:45 ALT 23 Units/L (12-78) 02/25/20 04:45 Alkaline Phosphatase 67 Units/L (46-116) 02/25/20 04:45 B-Natriuretic Peptide 168 pg/mL (0-79) H 02/25/20 04:45 Total Protein 7.1 g/dL (6.4-8.2) 02/25/20 04:45 Albumin 3.3 g/dL (3.4-5.0) L 02/25/20 04:45 Globulin 3.8 g/dL (2.5-4.5) 02/25/20 04:45 Albumin/Globulin Ratio 0.9 Ratio (1.1-2.1) L 02/25/20 04:45 Vancomycin Trough 25.0 ug/mL (15-20) H* 02/25/20 04:45 - Plan (1) Bilateral lower leg cellulitis Status: Acute Plan: VANCOMYCIN 1.25G IV TID, ZOSYN 3.375G IV Q6H, COREG 25MG PO BID, AND LASIX 80MG IV BID (2) Congestive heart failure Status: Acute Qualifiers: Heart failure type: unspecified Heart failure chronicity: acute on chronic Qualified Code(s): I50.9 - Heart failure, unspecified Plan: COREG 25MG PO BID, LASIX 80MG IV BID, CONTINUE TO MONITOR (3) Respiratory failure with hypoxia and hypercapnia Status: Acute Qualifiers: Chronicity: acute on chronic Qualified Code(s): J96.21 - Acute and chronic respiratory failure with hypoxia; J96.22 - Acute and chronic respiratory failure with hypercapnia Plan: ENCOURAGE USE OF BIPAP, SOLU-MEDROL 80MG IV Q8H, CONTINUE TO MONITOR
[2020-02-25] MEDS: TYLENOL 325 MG TAB PO PRN (23:42)
[2020-02-26] MEDS: ZOSYN VIAL 3.375 GRAMS 3.375 G in NS 100 ML IV 100 ML IV SCH ×2 (03:22→08:44)
[2020-02-26 05:17] LABS: BASOPHILS % (AUTO) 0.2 % (0.2-1.0); HEMATOCRIT 41.6 % (42.0-54.0); HEMOGLOBIN 13.7 g/dL (13.5-18.0); LYMPHOCYTES # (AUTO) 0.4 X10^3/uL (1.3-2.9); LYMPHOCYTES % (AUTO) 6.3 % (21.0-51.0); MEAN CORPUSCULAR HEMOGLOBIN 29.6 pg (27.0-34.0); MEAN CORPUSCULAR HGB CONC 32.8 g/dL (33.0-35.0); MEAN CORPUSCULAR VOLUME 90.1 fL (80.0-100.0); MEAN PLATELET VOLUME 8.6 fL (7.4-11.0); MONOCYTES # (AUTO) 0.3 x10^3/uL (0.3-0.8); MONOCYTES % (AUTO) 5.2 % (0.0-13.0); NEUTROPHILS # (AUTO) 5.2 x10^3/uL (2.2-4.8); NEUTROPHILS % (AUTO) 88.3 % (42.0-75.0); PLATELET COUNT 167 X10^3/uL (150.0-450.0); RED BLOOD COUNT 4.62 X10^6/uL (4.7-6.0); RED CELL DISTRIBUTION WIDTH 16.7 % (11.6-16.5); WHITE BLOOD COUNT 5.9 X10^3/uL (3.6-10.0)
[2020-02-26 05:24] LABS: ALANINE AMINOTRANSFERASE 20 Units/L (12-78); ALBUMIN 3.2 g/dL (3.4-5.0); ALKALINE PHOSPHATASE 58 Units/L (46-116); ASPARTATE AMINO TRANSFERASE 13 Units/L (15-37); BLOOD UREA NITROGEN 21 mg/dL (7-18); CHLORIDE 94 mmol/L (98-107); COR CA(FOR HYPOALB) 9.6 mg/dL (8.5-10.1); COR NA(FOR HYPERGLY) 146 mmol/L (136-145); CREATININE 1.63 mg/dL (0.70-1.30); SODIUM 141 mmol/L (136-145); TOTAL PROTEIN 6.8 g/dL (6.4-8.2); eGFR NON BLACK RACES 52 (>60)
[2020-02-26 05:35] LABS: CARBON DIOXIDE > 45.0 mmol/L (21-32)
[2020-02-26] MEDS: HumuLIN R SUBCUT PRN ×2 (05:49→12:35)
[2020-02-26 05:53] LABS: ABG BASE EXCESS 18.4 mmol/L (-2.0-2.0)
[2020-02-26] MEDS: SOLU-Medrol 40 MG VIAL IVP SCH (05:53)
[2020-02-26 05:54] LABS: ABG ALLEN TEST POS; ABG HCO3 47.1 mmol/L (22-26)
[2020-02-26] MEDS: VANCOMYCIN IV *PREMIX 1 G/200 ML BAG 1 G/200 ML PIGGYBACK IV SCH (05:54)
--- NOTE | 2020-02-26 06:02 | RAD ---
HISTORYShortness of breathSTUDYCHEST, 1 [id number]/2020FINDINGSThe heart remains enlarged. No congestive heart failure is noted. The lungs are hypoinflated but free of acute infiltrates. No pleural effusions are identified. Bony thorax is unremarkable.IMPRESSIONCardiomegaly without congestive heart failure on today's examinationLungs hypoinflated but clearElectronically signed by: IVETTE HODGE (Feb 26, 2020 06:00:49)
[2020-02-26] MEDS ORDERED: POTASSIUM CHL 40 MEQ/NS 0.45% 500 ML IV PRN (06:21)
[2020-02-26] MEDS ORDERED: KLOR-CON PO PRN (06:21)
[2020-02-26] MEDS ORDERED: POTASSIUM CHLORIDE LIQ 20 MEQ UDC PO PRN (06:21)
[2020-02-26] MEDS ORDERED: POTASSIUM CHL 60 MEQ/NS 0.45% 500 ML IV PRN (06:21)
[2020-02-26] MEDS ORDERED: K-DUR TAB 20 MEQ PO PRN (06:21)
[2020-02-26] MEDS ORDERED: K-RIDER 10 MEQ/NS 100 ML 10 MEQ/100 ML BAG IV PRN (06:21)
[2020-02-26] MEDS ORDERED: MICRO K EXTEN CAP 10 MEQ PO PRN (06:21)
[2020-02-26] MEDS: LASIX IVP SCH (08:45)
[2020-02-26] MEDS: COREG TAB 25 MG PO SCH (08:45)
[2020-02-26] MEDS: DUONEB 0.5 MG/3 MG (3 mL) NEB SCH (09:26)
[2020-02-26 10:06] VITALS: BP 154/75
[2020-02-26] MEDS ORDERED: PHARMACY COMMENT IV NR (13:30)
== END 2020-02-26 04:25 | disposition home or self-care (01) | DRG 602 ==
LOC: MED/SURG 12:23
PROVIDERS: ADMIT Internal Medicine; ATTEND Internal Medicine
DX: M25.561 Pain in right knee; L03.116 Cellulitis of left lower limb; J96.01 Acute respiratory failure with hypoxia; I50.9 Heart failure, unspecified; I10 Essential (primary) hypertension; L03.115 Cellulitis of right lower limb; E66.01 Morbid (severe) obesity due to excess calories; E11.8 Type 2 diabetes mellitus with unspecified complications
CPT/HCPCS: 36415; 36600; 71010; 71020; 71045; 71046; 80053; 80202; 82565; 82803; 82947; 83036; 83880; 85025; 87040; 94640; 94660; 94760; A4216; A4222; A4618; A7030; J1815; J1940; J2543; J2920; J3370; J3490; J7050; J7060; J7620